=== PATIENT | female | born 1990 | race Caucasian/White ===

== ENCOUNTER 2017-01-24 07:08 | Inpatient (IN) | payer BC ==
--- NOTE | 2017-01-24 07:33 | PCM.LDHP ---
L&D History of Present Illness - General Date of Service: 01/24/17 Admit Problem/Dx: Admission Diagnosis/Problem Admission Diagnosis/Problem 01/24/17 10:42 The patient is a 26-yo G1PO female who presents for a planned induction of labor at 40 4/7 weeks. 01/24/17 11:07 Source of Information: Patient History Limitations: Reports: No Limitations - History of Present Illness Introduction:: The patient is feeling well overall, aside from anxiety surrounding the induction process. She is not experiencing contractions. No bloody show. Amniotic sac has not ruptured. - Related Data Allergies/Adverse Reactions: Allergies Allergy/AdvReac Type Severity Reaction Status Date / Time No Known Allergies Allergy Verified 01/24/17 08:02 Home Medications: Home Meds Escitalopram [Lexapro] 10 mg PO DAILY 01/24/17 [History] Past Medical History - History Comment History Comment: Gestational diabetes. Denies history of bleeding/coagulation disorder. Negative for Group B strep. Social & Family History - Family History Family Medical History: Unobtainable (The patient does not know her family history.) H&P Review of Systems - Review of Systems: Review Of Systems: See Below Free Text/Narrative: The patient has no specific complaints. General: Reports: No Symptoms HEENT: Reports: No Symptoms Pulmonary: Reports: No Symptoms Cardiovascular: Reports: No Symptoms Gastrointestinal: Reports: No Symptoms Genitourinary: Reports: No Symptoms Musculoskeletal: Reports: No Symptoms Skin: Reports: No Symptoms Psychiatric: Reports: Depression, Anxiety Neurological: Reports: No Symptoms Hematologic/Lymphatic: Reports: No Symptoms Immunologic: Reports: No Symptoms L&D Exam - Exam Exam: See Below - Vital Signs Vital Signs: Temp 97.5 BP 110/80 RR 16 O2 100 Pulse 72 - OB Specific Fundal Height In cm: 38 Contraction Intensity: None Movement: Active Heart Tones: Present Heart Tones per Min: 147 Heart Rate (FHR) Variability: Moderate (6-25 bmp) Presentation: Vertex - Soria Score Soria Score Cervix Position: Midposition Soria Score Consistency: Soft Soria Score Effacement: >80% Soria Score Dilation: Closed Soria Score 's Station: -3 Soria Score Total: 6 - Exam General: Alert, Oriented, Other (Anxious) Neck: Supple, Trachea Midline Lungs: Clear to Auscultation, Normal Respiratory Effort Cardiovascular: Regular Rate, Regular Rhythm GI/Abdominal Exam: Soft, Non-Tender (Baby is in vertex position.) Rectal Exam: Deferred Back Exam: Normal Inspection Skin: Warm, Dry - Patient Data Result Diagrams: 01/24/17 08:27 Problem List Initiated/Reviewed/Updated: Yes Assessment/Plan Comment:: Assessment: 1. Planned induction of labor at 40 4/7 weeks gestation 2. Gestational diabetes 3. Group B negative 4. A+ / antibodies negative Plan: 1. Pitocin per L&D protocol 2. Continue to monitor cervical changes 3. Pain control per patient preference 4. Anticipate spontaneous vaginal delivery 5. Plans to breast-feed
[2017-01-24] MEDS ORDERED: Lactated Ringers 1,000 ML IV SCH (08:00)
[2017-01-24] MEDS ORDERED: Sodium Chloride 0.9% 10 ML Syringe FLUSH PRN (08:05)
[2017-01-24] MEDS ORDERED: Lidocaine 1% 50 ML MDV INJECT ONE (08:05)
[2017-01-24] MEDS ORDERED: Nalbuphine 20 MG/1 ML Amp IVPUSH PRN (08:05)
[2017-01-24] MEDS ORDERED: Ondansetron 4 MG/2 ML SDV IVPUSH PRN ×2 (08:05→08:09)
--- NOTE | 2017-01-24 08:05 | PCM.PREANE ---
Preanesthetic Assessment - Anesthesia/Transfusion/Family Hx Anesthesia History: No Prior Anesthesia Family History of Anesthesia Reaction: No Transfusion History: No Prior Transfusion(s) Intubation History: Unknown - Review of Systems General: No Symptoms Pulmonary: No Symptoms Cardiovascular: No Symptoms Gastrointestinal: No Symptoms Neurological: No Symptoms Other: Reports: Diabetes (Gestational DM), Depression, Anxiety - Physical Assessment NPO Status Date: 01/23/17 NPO Status Time: 19:00 Pulse: 80 O2 Sat by Pulse Oximetry: 96 Respiratory Rate: 20 Blood Pressure: 110/80 Temperature: 36.8 C Height: 1.52 m Weight: 77.111 kg ASA Class: 2 Mental Status: Alert & Oriented x3 Airway Class: Mallampati = 2 Dentition: Reports: Normal Dentition, Caries Thyro-Mental Finger Breadths: 3 Mouth Opening Finger Breadths: 3 ROM/Head Extension: Full Lungs: Clear to Auscultation, Normal Respiratory Effort Cardiovascular: Regular Rate, Regular Rhythm, No Murmurs - Anesthesia Plan Pre-Op Medication Ordered: None - Acknowledgements Anesthesia Type Planned: Epidural Pt an Appropriate Candidate for the Planned Anesthesia: Yes Alternatives and Risks of Anesthesia Discussed w Pt/Guardian: Yes Pt/Guardian Understands and Agrees with Anesthesia Plan: Yes
[2017-01-24] MEDS ORDERED: ePHEDrine 50 MG/ML SDV IVPUSH PRN (08:09)
[2017-01-24] MEDS ORDERED: fentaNYL 100 MCG/2 ML SDV EPIDUR PRN (08:09)
[2017-01-24] MEDS ORDERED: Oxytocin/Lactated Ringers 10 UNIT/1,000 ML BAG IV SCH ×2 (08:15→08:38)
[2017-01-24] MEDS: Lactated Ringers 1,000 ML IV SCH ×2 (08:31→19:45)
[2017-01-24] MEDS: Oxytocin/Lactated Ringers 10 UNIT/1,000 ML BAG IV SCH ×2 (09:04→20:48)
--- NOTE | 2017-01-24 18:03 | PCM.SN ---
- Free Text/Narrative Note: The patient is a 26-yo G1PO female who presented for a planned induction at 40 4 /7 weeks this morning. She is receiving Pitocin 10 units/1000ml at 16 ml/hr. The patient is having mild to moderate contractions every 2-3 minutes. The pain is tolerable. She has not decided on an Epidural yet. heart tones are WNL and variable. She has eaten dinner and been active. Vitals: WNL Exam: Cervix is 2cm, 90%, very soft, posterior. Baby is in -2 position. Assessment: 1. Slow and steady progression of labor 2. Meconium-stained amniotic fluid Plan: 1. Membranes were artificially ruptured with amniotic hook device. Meconium- stained amniotic fluid present, but it is light and not thick. Patient tolerated the procedure well. [employer]endiaries Supervisor will be contacted for delivery. 2. Continue Pitocin per L&D protocol. 3. Will recheck cervix later tonight. I expect baby will arrive in the AM. Expect .
[2017-01-25] MEDS: Bupivacaine/fentaNYL/NS 100 ML Bag EPIDUR SCH ×2 (00:07→08:49)
[2017-01-25] MEDS: Lactated Ringers 1,000 ML IV SCH ×3 (00:46→17:35)
--- NOTE | 2017-01-25 08:56 | PCM.SN ---
- Free Text/Narrative Note: The patient is a 26-yo G1PO female who presented for a planned induction at 40 4 /7 weeks on 01/24. Her membranes were ruptured yesterday at 18:30 hrs. An intrauterine pressure transducer was placed at 05:30 hrs today. She is receiving Pitocin 10 units/1000ml at 20 ml/hr. The patient is having moderate contractions every 2-3 minutes. The patient is comfortable with the epidural in place. heart tones are WNL and variable. Vitals: WNL Exam: Cervix is 5cm, 100%, very soft, posterior. Baby is in 0 position. Assessment: 1. Slow progression of labor 2. Meconium-stained amniotic fluid Plan: 1. Continue Pitocin per L&D protocol. Plan to maximize Pitocin. 3. Will recheck cervix at 12pm. We discussed the potential need for a d /t duration since ruptured membranes. We will make a decision at 12pm today.
[2017-01-25] MEDS ORDERED: Citric Acid/Sodium Citrate Solution 30 ML Cup PO ONE (16:58)
[2017-01-25] MEDS ORDERED: Metoclopramide 10 MG/2 ML SDV IVPUSH ONE (16:59)
[2017-01-25] MEDS ORDERED: Bupivacaine 0.5% 30 ML SDV ONE (17:04)
[2017-01-25] MEDS ORDERED: Sodium Bicarbonate 8.4% 50 MEQ/50 ML SDV ONE (17:39)
[2017-01-25] MEDS ORDERED: Phenylephrine/Normal Saline 100 MCG/ML 10 ML Syringe ONE (17:39)
[2017-01-25] MEDS ORDERED: Lidocaine 2% with EPINEPHrine 1:200,000 20 ML SDV ONE (17:39)
[2017-01-25] MEDS ORDERED: Ondansetron 4 MG/2 ML SDV ONE (17:40)
[2017-01-25] MEDS ORDERED: Oxytocin 10 Units/1 ML SDV ONE (17:40)
[2017-01-25] MEDS ORDERED: fentaNYL 100 MCG/2 ML SDV ONE (17:42)
[2017-01-25] MEDS ORDERED: Morphine PF 10 MG/10 ML SDV ONE (17:43)
--- NOTE | 2017-01-25 18:02 | PCM.SN ---
- Free Text/Narrative Note: Patient was admitted for elective induction of labor at 40-4/7 weeks gestational age yesterday a.m. 01/24/2017. She was started on Pitocin. She seemed relatively insensitive to the Pitocin and it was slowly increased. she made slow progress until approximately 3 cm this a.m. and made a little more rapid progress progress up to 6 cm and then now has stalled for about the last 6 hours. She's been objectively evaluated with uterine pressure transducer showing adequate labor. At this time decision is made to proceed with a primary section for failure to progress, most probably secondary to cephalopelvic disproportion. The procedure of primary section and its risks, benefits and follow-up were discussed in detail the patient. She appears to understand and wishes to proceed. Consent is signed.
[2017-01-25] MEDS ORDERED: Ondansetron 4 MG/2 ML SDV IVPUSH PRN (18:49)
[2017-01-25] MEDS ORDERED: ePHEDrine 50 MG/ML SDV IVPUSH PRN ×2 (18:49→20:17)
[2017-01-25] MEDS ORDERED: diphenhydrAMINE 50 MG/ML SDV IVPUSH PRN ×2 (18:49→20:17)
[2017-01-25] MEDS ORDERED: Lactated Ringers 1,000 ML ONE ×2 (19:03→19:15)
[2017-01-25] MEDS ORDERED: Ketorolac 30 MG/ML SDV ONE (19:04)
[2017-01-25] MEDS ORDERED: ceFAZolin 2 GM in Premix Bag 1 BAG IV ONE (19:18)
--- NOTE | 2017-01-25 19:19 | PCM.POSTAN ---
POST ANESTHESIA ASSESSMENT - MENTAL STATUS Mental Status: Alert, Oriented - VITAL SIGNS Pulse Rate: 84 SaO2: 95 Resp Rate: 20 Blood Pressure: 98/66 Temperature: 100.0 C - RESPIRATORY Respiratory Status: Respiratory Rate WNL, Airway Patent, O2 Saturation Stable - CARDIOVASCULAR CV Status: Pulse Rate WNL, Blood Pressure Stable - GASTROINTESTINAL GI Status: No Symptoms - PAIN Pain Score: 0 - POST OP HYDRATION Hydration Status: Adequate & Stable
--- NOTE | 2017-01-25 19:26 | PCM.OPNOTE ---
- General Post-Op/Procedure Note Date of Surgery/Procedure: 01/25/17 Operative Procedure(s): Primary lower uterine segment transvers through pfannenstiel skin incision Findings: Baby was in vertex presentation with the left occiput posterior positioning. Amniotic fluid was mildly meconium stained. Baby had Apgars of 7 and 8. Weight was 8 lbs. 4 oz. Baby was male infant born at 1830 hrs on 01/25/2017 Pre Op Diagnosis: 40-5/7 week intrauterine , failure to progress Post-Op Diagnosis: Same with addition of persistent left occiput posterior position Anesthesia Technique: Epidural Other Anesthesia Type: Marcaine 0.5%20 mL Primary Surgeon: Stephane Saul Secondary Surgeon: Charlie Guaman Anesthesia Provider: Angela Guy Community Engagement Coordinator: Vickie Joel Reason Community Engagement Coordinator Was Necessary: Retraction, quality of care, patient safety Role of Community Engagement Coordinator: Retraction Fluid Replacement, Intraop: 1,500 Output, Urine Amount: 50 EBL in mLs: 1,000 Drain/Tube Comments:: Indwelling bladder catheter Complications: None Free Text/Narrative:: Intake & Output 01/25/17 01/25/17 01/25/17 06:59 14:59 22:59 Intake Total 120 Balance 120 Surgery duration: 29 minutes Procedure: Patient was transferred to the room and placed in a sitting position. Spinal anesthesia was administered. After confirmation of adequate anesthesia patient was placed in a supine position with a wedge under her right side to facilitate left lateral positioning. The patient was prepped and draped in usual fashion after Haskins catheter was already placed . The anesthetic was checked and found to be adequate. 20 mL of Marcaine 0.5% was injected locally in the Pfannenstiel incision site. The Pfannenstiel skin incision was then made carried down to skin subcutaneous and fascial layers. The fascia was then undermined superiorly and inferiorly to allow for adequate operating room the recti muscles midline and preperitoneal fat was bluntly dissected. Peritoneal cavity was entered longitudinally. The vesicouterine peritoneum was then incised transversely and bladder flap was developed. Myometrium was incised transversely to the level of the amniotic sac. This incision was extended bilaterally in a blunt fashion. The amniotic sac was then ruptured resulting clear amniotic fluid. A hand is placed in the low uterine segment and the baby's head was brought forth through the incision. The baby was completely delivered using fundal pressure in a routine fashion. The nose and mouth were bulb suctioned. Baby's cord was clamped x2 cut and baby was handed off to attending site auditor Dr Montoya. Placenta was expressed after cord blood was obtained. Uterus was then exteriorized to allow for easier closure. The cervix was assessed and found to be dilated adequately to allow egress of blood. The uterus was closed in 2 layers. The first layer a running locked suture of 0 Monocryl, the second layer a running locked vertical mattress suture of 0 Monocryl. [id number] suture was placed at the left incision to control 1 bleeder. Hemostasis confirmed at this time. Sponge instrument needle counts are correct. The uterus was returned to the abdominal cavity and lateral gutters were cleared of blood. Once again sponge needle counts are correct. The anterior abdominal wall was closed with a #1 PDS suture from angle to angle. The subcutaneous area was found to be free of any bleeders. interrupted sutures of 3-0 Monocryl were used to reapproximate the subcutaneous layer.Skin was closed with a running subcuticular stitch of 3-0 Monocryl in a vertical mattress suture fashion using a Glenn needle. Prineo mesh /glue was then applied to further approximate the incision. It should be noted that patient received 2 g of Ancef preoperatively for infection prophylaxis and had Pitocin infused after delivery of the placenta to facilitate uterine contraction. She also had sequential compression stockings in place for DVT prophylaxis. Patient was discharged from the operating room in satisfactory condition.
[2017-01-25] MEDS ORDERED: Acetaminophen/oxyCODONE 325-5 MG Tab PO PRN (20:17)
[2017-01-25] MEDS ORDERED: Lanolin 100% Cream 7 GM Tube TOP PRN (20:17)
[2017-01-25] MEDS ORDERED: Naloxone 0.4 MG/ML SDV IVPUSH PRN (20:17)
[2017-01-25] MEDS ORDERED: Dextrose 5%-Lactated Ringers 1,000 ML IV SCH (20:17)
[2017-01-25] MEDS ORDERED: Docusate Sodium 100 MG Cap PO PRN (20:17)
[2017-01-25] MEDS: Simethicone 80 MG Tab.Chew PO SCH (21:42)
[2017-01-25] MEDS ORDERED: Bupivacaine 0.25% 10 ML SDV ONE (22:22)
[2017-01-25] MEDS: Ondansetron 4 MG/2 ML SDV IV PRN (22:44)
[2017-01-26] MEDS: Ibuprofen 800 MG Tab PO SCH ×3 (02:19→18:00)
[2017-01-26] MEDS: Ondansetron 4 MG/2 ML SDV IV PRN (04:34)
--- NOTE | 2017-01-26 07:35 | PCM48HPAN ---
Post Anesthesia Note - EVALUATION WITHIN 48HRS OF ANESTHETIC Vital Signs in Normal Range: Yes Patient Participated in Evaluation: Yes Respiratory Function Stable: Yes Airway Patent: Yes Cardiovascular Function Stable: Yes Hydration Status Stable: Yes Pain Control Satisfactory: Yes Nausea and Vomiting Control Satisfactory: Yes Mental Status Recovered: Yes
[2017-01-26] MEDS: Simethicone 80 MG Tab.Chew PO SCH ×4 (08:07→22:02)
[2017-01-26] MEDS: Prenatal Multivitamin with Calcium/Folic Acid/Iron Tab PO SCH (08:08)
--- NOTE | 2017-01-26 12:02 | PCM.SN ---
- Free Text/Narrative Note: The patient is a 26-yo now female who presented for a planned induction on 01/23/2017. She had a section at 18:30 hrs on 01/25/2017. The decision to proceed with a CS was made after failure to progress over 36 hours with a max dose of Pitocin at 30 m/hr. The patient delivered a male baby and he is doing well. The patient received oxygen during the night d/t low O2 stats, but she has recovered now and is no longer on oxygen. She had minimal urine output through the night likely d/t anti-diuretic effects of Pitocin. Haskins catheter was removed this morning. Lochia has decreased from last night. Pain is manageable with Ibuprofen 800mg q8hrs. The patient is doing well and in good spirits. No fever or chills. Vitals: WNL Exam: Uterus is soft and below the umbilicus. Incision is intact. Minimal dried blood present underneath the mesh. No erythema, edema, drainage, or foul odor from the site. Edema is minimal with SCDs. Assessment: 1. S/p post-operative day 1 2. Gestational diabetes Plan: 1. Post-operative care per L&D protocol. She can follow a regular diet. She is encouraged to shower and walk today. 2. Continue to monitor ins and outs d/t h/o Pitocin therapy. 3. Will check on the patient this evening. 4. Will follow-up with 2 hr GTT at 2 week follow-up in clinic.
[2017-01-27] MEDS: Ibuprofen 800 MG Tab PO SCH ×3 (01:38→18:12)
--- NOTE | 2017-01-27 08:12 | PCM.SN ---
- Free Text/Narrative Note: The patient is a 26-yo now female who presented for a planned induction on 01/23/2017. She had a section on 01/25/2017 d/t failure to progress. Pain is manageable with Ibuprofen 800mg q8hrs. The patient is doing well and in good spirits. No fever or chills. Vitals: WNL Exam: Uterus is soft and below the umbilicus. Incision is intact and appears to be healing well. Minimal dried blood present underneath the mesh. No erythema, edema, drainage, or foul odor from the site. Edema is minimal with SCDs. Pain is being managed with Ibuprofen 800mg q8hrs. The patient is doing well and able to rest. Assessment: 1. S/p post-operative day 2 2. Breast-feeding Plan: 1. Post-operative care per L&D protocol. She can follow a regular diet. She is encouraged to shower and walk today. 2. We discussed her discharge questions. No baths x 1 week. Showers only. Anticipate discharge tomorrow. 3. RTC in 2 weeks for post- visit.
[2017-01-27] MEDS: Simethicone 80 MG Tab.Chew PO SCH ×4 (08:47→21:14)
[2017-01-27] MEDS: Prenatal Multivitamin with Calcium/Folic Acid/Iron Tab PO SCH (08:48)
[2017-01-28] MEDS: Ibuprofen 800 MG Tab PO SCH ×2 (01:25→08:39)
[2017-01-28 04:09] VITALS: BP 119/72
--- NOTE | 2017-01-28 07:49 | PCM.PNPP ---
- General Info Date of Service: 01/28/17 Functional Status: Reports: Pain Controlled, Tolerating Diet, Ambulating, Urinating - Review of Systems General: Reports: No Symptoms Pulmonary: Reports: No Symptoms Cardiovascular: Reports: No Symptoms Gastrointestinal: Reports: No Symptoms Genitourinary: Reports: No Symptoms Musculoskeletal: Reports: No Symptoms Neurological: Reports: No Symptoms - Patient Data Vital Signs - Most Recent: Last Vital Signs Temp 36.5 C 01/28/17 04:00 Pulse 71 01/28/17 03:21 Resp 16 01/28/17 03:21 BP 119/72 01/28/17 03:21 Pulse Ox 98 01/28/17 03:21 Weight - Most Recent: 77.111 kg Med Orders - Current: Current Medications Diphenhydramine HCl (Benadryl) 25 mg IVPUSH Q6H PRN PRN Reason: Itching or Nausea Docusate Sodium (Colace) 100 mg PO Q12H PRN PRN Reason: Constipation Emollient Ointment (Lansinoh Hpa) 0 gm TOP ASDIRECTED PRN PRN Reason: Sore Nipples Last Admin: 01/27/17 23:08 Dose: 1 applic Ephedrine Sulfate (Ephedrine Sulfate) 5 mg IVPUSH SEECOMMENT PRN PRN Reason: Other Ibuprofen (Motrin) 800 mg PO Q8H [facility] Last Admin: 01/28/17 01:25 Dose: 800 mg Naloxone HCl (Narcan) 0.1 mg IVPUSH SEECOMMENT PRN PRN Reason: Respiratory Depression Ondansetron HCl (Zofran) 4 mg IV Q4H PRN PRN Reason: Nausea/Vomiting Last Admin: 01/26/17 04:34 Dose: 4 mg Oxycodone/Acetaminophen (Percocet 325-5 Mg) 2 tab PO Q4H PRN PRN Reason: Pain (moderate 4-6) Last Admin: 01/27/17 19:58 Dose: 1 tab Prenat Multivit/[place]/Iron/Folic Ac ( Plus Iron) 1 each PO DAILY [facility] Last Admin: 01/27/17 08:48 Dose: Not Given Simethicone (Simethicone) 80 mg PO PCBED [facility] Last Admin: 01/27/17 21:14 Dose: 80 mg Discontinued Medications Bupivacaine HCl (Marcaine 0.5%) Confirm Administered Dose 30 ml .ROUTE .STK-MED ONE Stop: 01/25/17 17:05 Last Admin: 01/25/17 18:26 Dose: 20 ml Citric Acid/Sodium Citrate (Bicitra Solution) 30 ml PO ONETIME ONE Stop: 01/25/17 16:59 Last Admin: 01/25/17 18:02 Dose: 30 ml Diphenhydramine HCl (Benadryl) 25 mg IVPUSH Q6H PRN PRN Reason: Pruritis Ephedrine Sulfate (Ephedrine Sulfate) 5 mg IVPUSH ASDIRECTED PRN PRN Reason: Hypotension Ephedrine Sulfate (Ephedrine Sulfate) 5 mg IVPUSH ASDIRECTED PRN PRN Reason: Hypotension Fentanyl (Sublimaze) 100 mcg EPIDUR Q3H PRN PRN Reason: Pain Last Admin: 01/25/17 00:07 Dose: 100 mcg Fentanyl (Sublimaze) Confirm Administered Dose 100 mcg .ROUTE .STK-MED ONE Stop: 01/25/17 17:43 Fentanyl/Bupivacaine HCl (Fentanyl/Bupivacaine/Ns 2 Mcg-0.125% 100 Ml) 100 ml EPIDUR ASDIRECTED THAD Last Admin: 01/25/17 08:49 Dose: 100 ml Oxytocin 10 unit/ Lactated (Ringer's) 1,001 mls @ 12.01 mls/hr IV TITRATE THAD; 2 MUNITS/MIN PRN Reason: Protocol Lactated Ringer's (Ringers, Lactated) 1,000 mls @ 50 mls/hr IV ASDIRECTED THAD Lactated Ringer's (Ringers, Lactated) 1,000 mls @ 100 mls/hr IV ASDIRECTED THAD Last Admin: 01/25/17 17:35 Dose: 100 mls/hr Oxytocin/Lactated Ringer's (Pitocin In Lr 10 Units/1,000 Ml) 10 unit in 1,000 mls @ 100 mls/hr IV TITRATE THAD PRN Reason: Protocol Oxytocin 10 unit/ Lactated (Ringer's) 1,001 mls @ 100.1 mls/hr IV TITRATE THAD PRN Reason: Protocol Oxytocin/Lactated Ringer's (Pitocin In Lr 10 Units/1,000 Ml) 10 unit in 1,000 mls @ 100 mls/hr IV TITRATE THAD PRN Reason: Protocol Oxytocin/Lactated Ringer's (Pitocin In Lr 10 Units/1,000 Ml) 10 unit in 1,000 mls @ 12 mls/hr IV TITRATE THAD; 2 MUNITS/MIN PRN Reason: Protocol Last Titration: 01/25/17 04:50 Dose: 20 munits/min, 120 mls/hr Oxytocin 20 unit/ Lactated (Ringer's) 1,002 mls @ 60.12 mls/hr IV TITRATE THAD; 20 MUNITS/MIN PRN Reason: Protocol Last Titration: 01/25/17 10:00 Dose: 30 munits/min, 90.18 mls/hr Lactated Ringer's (Ringers, Lactated) Confirm Administered Dose 1,000 mls @ as directed .ROUTE .STK-MED ONE Stop: 01/25/17 19:04 Lactated Ringer's (Ringers, Lactated) Confirm Administered Dose 1,000 mls @ as directed .ROUTE .STK-MED ONE Stop: 01/25/17 19:16 Cefazolin Sodium/Dextrose 2 gm (/ Premix) 50 mls @ 100 mls/hr IV ONETIME ONE Stop: 01/25/17 19:47 Last Admin: 01/25/17 21:41 Dose: Not Given Dextrose/Lactated Ringer's (Dextrose 5%-Lactated Ringers) 1,000 mls @ 125 mls/ hr IV ASDIRECTED THAD Stop: 01/26/17 04:16 Last Admin: 01/25/17 23:25 Dose: 125 mls/hr Ketorolac Tromethamine (Toradol) Confirm Administered Dose 30 mg .ROUTE .STK- MED ONE Stop: 01/25/17 19:05 Lidocaine HCl (Xylocaine 1%) 10 ml INJECT ONETIME ONE Stop: 01/24/17 08:06 Last Admin: 01/26/17 23:58 Dose: Not Given Lidocaine/Epinephrine (Xylocaine-Mpf 2%-Epi 1:200,000) Confirm Administered Dose 20 ml .ROUTE .STK-MED ONE Stop: 01/25/17 17:40 Metoclopramide HCl (Reglan) 10 mg IVPUSH ONETIME ONE Stop: 01/25/17 17:00 Last Admin: 01/25/17 18:00 Dose: 10 mg Morphine Sulfate (Duramorph Pf) Confirm Administered Dose 10 mg .ROUTE .STK-MED ONE Stop: 01/25/17 17:44 Nalbuphine HCl (Nubain) 10 mg IVPUSH Q2H PRN PRN Reason: Pain (moderate 4-6) Ondansetron HCl (Zofran) 4 mg IVPUSH Q4H PRN PRN Reason: Nausea/Vomiting Last Admin: 01/24/17 21:47 Dose: 4 mg Ondansetron HCl (Zofran) 4 mg IVPUSH ONETIME PRN PRN Reason: Nausea/Vomiting Ondansetron HCl (Zofran) Confirm Administered Dose 4 mg .ROUTE .STK-MED ONE Stop: 01/25/17 17:41 Ondansetron HCl (Zofran) 4 mg IVPUSH ONETIME PRN PRN Reason: Nausea/Vomiting Oxytocin (Pitocin) Confirm Administered Dose 20 unit .ROUTE .STK-MED ONE Stop: 01/25/17 17:41 Phenylephrine HCl (Phenylephrine In Ns 100 Mcg/Ml) Confirm Administered Dose 1 mg .ROUTE .STK-MED ONE Stop: 01/25/17 17:40 Sodium Bicarbonate (Sodium Bicarbonate 8.4%) Confirm Administered Dose 50 meq .ROUTE .STK-MED ONE Stop: 01/25/17 17:40 Sodium Chloride (Saline Flush) 10 ml FLUSH ASDIRECTED PRN PRN Reason: Keep Vein Open - Interaction Disposition, : [place] in Room with Family Infant Interaction: Holding Feeding: Attempted ; Nursed Fair/Poor - Recovery Exam Fundal Tone: Firm Fundal Level: At Umbilicus Fundal Placement: Midline Lochia Amount: Scant, Small Lochia Color: Rubra/Red Perineum Description: Intact, Minimal Bruising/Swelling Episiotomy/Laceration: None Bladder Status: Voiding Urinary Elimination: Indwelling Catheter - Exam General: Alert, Oriented, Cooperative Lungs: Clear to Auscultation, Normal Respiratory Effort Cardiovascular: Regular Rate, Regular Rhythm GI/Abdominal Exam: Soft, Tender (appropriate post op) Skin: Warm, Dry, Intact Wound/Incisions: Healing Well, No Drainage - Problem List & Annotations (1) 40 weeks gestation of SNOMED Code(s): 89378735 Code(s): Z3A.40 - 40 WEEKS GESTATION OF Status: Acute Current Visit: Yes (2) Failure to progress in labor SNOMED Code(s): 089532198 Code(s): O62.2 - OTHER UTERINE INERTIA Status: Acute Current Visit: Yes (3) S/P primary low transverse SNOMED Code(s): 884298334, 396879241, 931706111 Code(s): Z98.891 - HISTORY OF UTERINE SCAR FROM PREVIOUS SURGERY Status: Acute Current Visit: Yes - Problem List Review Problem List Initiated/Reviewed/Updated: Yes - Assessment Assessment:: POD#3 from for FTP - Plan Plan:: S/p PLTCS * Routine cares * Encourage breast feeding * Discharge home today
--- NOTE | 2017-01-28 07:55 | PCM.DCSUM1 ---
Discharge Summary - Discharge Data Discharge Date: 01/28/17 Discharge Disposition: Home, Self-Care 01 Condition: Good - Discharge Diagnosis/Problem(s) (1) 40 weeks gestation of SNOMED Code(s): 16304752 ICD Code: Z3A.40 - 40 WEEKS GESTATION OF Status: Acute Current Visit: Yes (2) Failure to progress in labor SNOMED Code(s): 323161928 ICD Code: O62.2 - OTHER UTERINE INERTIA Status: Acute Current Visit: Yes (3) S/P primary low transverse SNOMED Code(s): 489880260, 954507923, 407167591 ICD Code: Z98.891 - HISTORY OF UTERINE SCAR FROM PREVIOUS SURGERY Status: Acute Current Visit: Yes - Patient Summary/Data Operative Procedure(s) Performed: Primary lower uterine segment transvers C- section through pfannenstiel skin incision Complications: None Consults: None Recommended Follow-up Testing/Procedures: Follow up in [address] Saul [facility] Course: Patient is a 26 y/o at 40 4/7 wks who was admitted for planned IOL. This was done with pitocin and AROM. Patient had an arrest of dilation at 6 cm and thus underwent a PLTCS. See operative note for full deatils. she did well and was discharged home on PPD#3. - Patient Instructions Diet: Regular Diet as Tolerated Activity: No Lifting Over 10 Pounds Activity, Other: Pelvic Rest for 6 weeks Driving: Do Not Drive (While taking narcotics ) Showering/Bathing: May Shower, No Tub Bathing/Swimming Wound/Incision Care: Keep Operative Site/Wound Site Clean and Dry Notify Provider of: Fever, Increased Pain, Swelling and Redness, Drainage, Nausea and/or Vomiting - Discharge Plan Prescriptions/Med Rec: Acetaminophen/oxyCODONE [Percocet 325-5 MG] 1 - 2 tab PO Q4H PRN #25 tablet PRN Reason: Pain (Moderate 4-6) Home Medications: Home Meds Escitalopram [Lexapro] 10 mg PO DAILY 01/24/17 [History] Acetaminophen/oxyCODONE [Percocet 325-5 MG] 1 - 2 tab PO Q4H PRN #25 tablet 04/15 [Rx] Docusate Sodium [Colace] 100 mg PO Q12H PRN cap 01/28/17 [Rx] Ibuprofen [IJD: Ibuprofen] 800 mg PO Q8H tablet 01/28/17 [Rx] Vit with Ca/FA/Iron [ Plus Iron] 1 each PO DAILY tablet [Rx] Patient Handouts: Delivery, Care After, Challenges and Solutions Referrals: Stephane Saul MD [Primary Care Provider] - - Discharge Summary/Plan Comment DC Time >30 min.: No - Patient Data Vitals - Most Recent: Last Vital Signs Temp 36.5 C 01/28/17 04:00 Pulse 71 01/28/17 03:21 Resp 16 01/28/17 03:21 BP 119/72 01/28/17 03:21 Pulse Ox 98 01/28/17 03:21 Weight - Most Recent: 77.111 kg Med Orders - Current: Current Medications Diphenhydramine HCl (Benadryl) 25 mg IVPUSH Q6H PRN PRN Reason: Itching or Nausea Docusate Sodium (Colace) 100 mg PO Q12H PRN PRN Reason: Constipation Emollient Ointment (Lansinoh Hpa) 0 gm TOP ASDIRECTED PRN PRN Reason: Sore Nipples Last Admin: 01/27/17 23:08 Dose: 1 applic Ephedrine Sulfate (Ephedrine Sulfate) 5 mg IVPUSH SEECOMMENT PRN PRN Reason: Other Ibuprofen (Motrin) 800 mg PO Q8H [facility] Last Admin: 01/28/17 01:25 Dose: 800 mg Naloxone HCl (Narcan) 0.1 mg IVPUSH SEECOMMENT PRN PRN Reason: Respiratory Depression Ondansetron HCl (Zofran) 4 mg IV Q4H PRN PRN Reason: Nausea/Vomiting Last Admin: 01/26/17 04:34 Dose: 4 mg Oxycodone/Acetaminophen (Percocet 325-5 Mg) 2 tab PO Q4H PRN PRN Reason: Pain (moderate 4-6) Last Admin: 01/27/17 19:58 Dose: 1 tab Prenat Multivit/Seward/Iron/Folic Ac ( Plus Iron) 1 each PO DAILY [facility] Last Admin: 01/27/17 08:48 Dose: Not Given Simethicone (Simethicone) 80 mg PO PCBED [facility] Last Admin: 01/27/17 21:14 Dose: 80 mg Discontinued Medications Bupivacaine HCl (Marcaine 0.5%) Confirm Administered Dose 30 ml .ROUTE .[facility] ONE Stop: 01/25/17 17:05 Last Admin: 01/25/17 18:26 Dose: 20 ml Citric Acid/Sodium Citrate (Bicitra Solution) 30 ml PO ONETIME ONE Stop: 01/25/17 16:59 Last Admin: 01/25/17 18:02 Dose: 30 ml Diphenhydramine HCl (Benadryl) 25 mg IVPUSH Q6H PRN PRN Reason: Pruritis Ephedrine Sulfate (Ephedrine Sulfate) 5 mg IVPUSH ASDIRECTED PRN PRN Reason: Hypotension Ephedrine Sulfate (Ephedrine Sulfate) 5 mg IVPUSH ASDIRECTED PRN PRN Reason: Hypotension Fentanyl (Sublimaze) 100 mcg EPIDUR Q3H PRN PRN Reason: Pain Last Admin: 01/25/17 00:07 Dose: 100 mcg Fentanyl (Sublimaze) Confirm Administered Dose 100 mcg .ROUTE .[facility] ONE Stop: 01/25/17 17:43 Fentanyl/Bupivacaine HCl (Fentanyl/Bupivacaine/Ns 2 Mcg-0.125% 100 Ml) 100 ml EPIDUR ASDIRECTED THAD Last Admin: 01/25/17 08:49 Dose: 100 ml Oxytocin 10 unit/ Lactated (Ringer's) 1,001 mls @ 12.01 mls/hr IV TITRATE THAD; 2 MUNITS/MIN PRN Reason: Protocol Lactated Ringer's (Ringers, Lactated) 1,000 mls @ 50 mls/hr IV ASDIRECTED THAD Lactated Ringer's (Ringers, Lactated) 1,000 mls @ 100 mls/hr IV ASDIRECTED THAD Last Admin: 01/25/17 17:35 Dose: 100 mls/hr Oxytocin/Lactated Ringer's (Pitocin In Lr 10 Units/1,000 Ml) 10 unit in 1,000 mls @ 100 mls/hr IV TITRATE THAD PRN Reason: Protocol Oxytocin 10 unit/ Lactated (Ringer's) 1,001 mls @ 100.1 mls/hr IV TITRATE THAD PRN Reason: Protocol Oxytocin/Lactated Ringer's (Pitocin In Lr 10 Units/1,000 Ml) 10 unit in 1,000 mls @ 100 mls/hr IV TITRATE THAD PRN Reason: Protocol Oxytocin/Lactated Ringer's (Pitocin In Lr 10 Units/1,000 Ml) 10 unit in 1,000 mls @ 12 mls/hr IV TITRATE THAD; 2 MUNITS/MIN PRN Reason: Protocol Last Titration: 01/25/17 04:50 Dose: 20 munits/min, 120 mls/hr Oxytocin 20 unit/ Lactated (Ringer's) 1,002 mls @ 60.12 mls/hr IV TITRATE THAD; 20 MUNITS/MIN PRN Reason: Protocol Last Titration: 01/25/17 10:00 Dose: 30 munits/min, 90.18 mls/hr Lactated Ringer's (Ringers, Lactated) Confirm Administered Dose 1,000 mls @ as directed .ROUTE .[facility]-MED ONE Stop: 01/25/17 19:04 Lactated Ringer's (Ringers, Lactated) Confirm Administered Dose 1,000 mls @ as directed .ROUTE .[facility]-MED ONE Stop: 01/25/17 19:16 Cefazolin Sodium/Dextrose 2 gm (/ Premix) 50 mls @ 100 mls/hr IV ONETIME ONE Stop: 01/25/17 19:47 Last Admin: 01/25/17 21:41 Dose: Not Given Dextrose/Lactated Ringer's (Dextrose 5%-Lactated Ringers) 1,000 mls @ 125 mls/ hr IV ASDIRECTED THAD Stop: 01/26/17 04:16 Last Admin: 01/25/17 23:25 Dose: 125 mls/hr Ketorolac Tromethamine (Toradol) Confirm Administered Dose 30 mg .ROUTE .STK- MED ONE Stop: 01/25/17 19:05 Lidocaine HCl (Xylocaine 1%) 10 ml INJECT ONETIME ONE Stop: 01/24/17 08:06 Last Admin: 01/26/17 23:58 Dose: Not Given Lidocaine/Epinephrine (Xylocaine-Mpf 2%-Epi 1:200,000) Confirm Administered Dose 20 ml .ROUTE .STK-MED ONE Stop: 01/25/17 17:40 Metoclopramide HCl (Reglan) 10 mg IVPUSH ONETIME ONE Stop: 01/25/17 17:00 Last Admin: 01/25/17 18:00 Dose: 10 mg Morphine Sulfate (Duramorph Pf) Confirm Administered Dose 10 mg .ROUTE .STK-MED ONE Stop: 01/25/17 17:44 Nalbuphine HCl (Nubain) 10 mg IVPUSH Q2H PRN PRN Reason: Pain (moderate 4-6) Ondansetron HCl (Zofran) 4 mg IVPUSH Q4H PRN PRN Reason: Nausea/Vomiting Last Admin: 01/24/17 21:47 Dose: 4 mg Ondansetron HCl (Zofran) 4 mg IVPUSH ONETIME PRN PRN Reason: Nausea/Vomiting Ondansetron HCl (Zofran) Confirm Administered Dose 4 mg .ROUTE .STK-MED ONE Stop: 01/25/17 17:41 Ondansetron HCl (Zofran) 4 mg IVPUSH ONETIME PRN PRN Reason: Nausea/Vomiting Oxytocin (Pitocin) Confirm Administered Dose 20 unit .ROUTE .STK-MED ONE Stop: 01/25/17 17:41 Phenylephrine HCl (Phenylephrine In Ns 100 Mcg/Ml) Confirm Administered Dose 1 mg .ROUTE .STK-MED ONE Stop: 01/25/17 17:40 Sodium Bicarbonate (Sodium Bicarbonate 8.4%) Confirm Administered Dose 50 meq .ROUTE .STK-MED ONE Stop: 01/25/17 17:40 Sodium Chloride (Saline Flush) 10 ml FLUSH ASDIRECTED PRN PRN Reason: Keep Vein Open *Q Meaningful Use (DIS) - VTE *Q VTE Criteria *Q: - Stroke *Q Stroke Criteria *Q: - AMI *Q AMI Criteria *Q:
[2017-01-28] MEDS: Simethicone 80 MG Tab.Chew PO SCH (08:39)
[2017-01-28] MEDS: Prenatal Multivitamin with Calcium/Folic Acid/Iron Tab PO SCH (08:40)
== END 2017-01-28 11:47 | disposition home or self-care (01) | DRG 540 ==
LOC: JD.OBCHECK 07:08 → JD.OB 07:09 → OBSVTOIN 01-25 18:30 → JD.OB 01-25 18:30
PROVIDERS: ADMIT Obstetrics & Gynecology; ATTEND Obstetrics & Gynecology
PROC: 10D00Z1 Extraction of Products of Conception, Low, Open Approach (ICD-10-PCS; principal; 2017-01-25)
PROC: 3E0P3VZ Introduction of Hormone into Female Reproductive, Percutaneous Approach (ICD-10-PCS; 2017-01-25)
PROC: 10907ZC Drainage of Amniotic Fluid, Therapeutic from Products of Conception, Via Natural or Artificial Opening (ICD-10-PCS; 2017-01-25)
PROC: 00HU33Z Insertion of Infusion Device into Spinal Canal, Percutaneous Approach (ICD-10-PCS; 2017-01-25)
PROC: 3E0R3BZ Introduction of Anesthetic Agent into Spinal Canal, Percutaneous Approach (ICD-10-PCS; 2017-01-25)
DX: O48.0 Post-term pregnancy (principal); Z3A.41 41 weeks gestation of pregnancy; Z37.0 Single live birth; O24.429 Gestational diabetes mellitus in childbirth, unspecified control; O77.0 Labor and delivery complicated by meconium in amniotic fluid; O62.0 Primary inadequate contractions; O64.0XX0 Obstructed labor due to incomplete rotation of fetal head, not applicable or unspecified
CPT/HCPCS: 01967; 01968; 36415; 85025; 86850; 86900; 86901; A9270-GY; J1885; J2270; J2405; J2590; J2765; J3010; J7042; J7120